=== PATIENT | female | born 1935 | race Caucasian/White ===

== ENCOUNTER 2020-07-02 13:31 | Inpatient (IN) | payer MEDICARE ==
[~2020-07-02] VITALS: Ht 165.1 cm; Wt 49.6 kg
[~2020-07-02 13:31] MED LIST: ACETAZOLAMIDE250 MG PO; ALDACTONE 25MG25 MG PO; ALPRAZOLAM0.5 MG PO; ANTACID LIQUID355 ML PO; ANUSOL HC SUPP1 SUPP PR; ASPIRIN CHEWABL81 MG PO; BIOTIN2500 MCG PO; BUMETANIDE1 MG PO; CARDIZEM CD180 MG PO; DIGOXIN125 MCG PO; DILTIAZEM 24HR180 M1 PO; DULERA 100 MCG8.8 GM INH; FEROSUL325 MG PO; FERROUS GLUCON324 M1 PO; FUROSEMIDE20 MG PO; HUMIRA40 MG/0.4 SQ; HYDROCHLOROTHIA25 MG PO; IMDUR ER TAB 3030 MG PO; LASIX20 MG PO; LASIX40 MG PO; LEVALBUTER0.31 MG/3 NEB; LEVAQUIN500 MG PO; LEVOTHYROXINE50 MCG PO; LIORESAL TAB 1010 MG PO; LOPRESSOR 25 MG25 MG PO; LORTAB 5-325 M1 EACH PO; METOPROLOL SUCC25 MG PO; METOPROLOL TART25 MG PO; MYCOSTATIN100000 UTS PO; NITROSTAT 0.40.4 MG SL; NORCO 5-325 TA1 EACH PO; OMNICEF 300 MG300 MG PO; PLAQUENIL 200200 MG PO; PLAQUENIL200 MG PO; POLYETHYLENE GL17 GM PO; PRAVACHOL40 MG PO; PREDNISONE 5 MG5 MG PO; PROBIOTIC1 EAC1 PO; PROTONIX40 MG PO; SENNA-TIME S T1 EACH PO; SYNTHROID25 MCG PO; THERAGRAN M TAB1 EA PO; TRIMETHOPRIM100 MG PO; VITAMIN D250000 UNIT PO; VOLTAREN100 GM TP; XARELTO10 MG PO; XARELTO15 MG PO
[2020-07-02 14:35] LABS: HEMOGLOBIN 10.3 gm/dl (12.3-15.3); RED BLOOD COUNT 3.38 M/UL (4.00-5.10); WHITE BLOOD COUNT 8.1 K/UL (4.5-11.0)
[2020-07-02] MEDS ORDERED: FERROUS SULFAT325 MG PO (15:50)
[2020-07-02] MEDS ORDERED: PROBIOTIC1 EAC1 PO (19:51)
[2020-07-02] MEDS ORDERED: PREDNISONE 5 MG5 MG PO (19:54)
[2020-07-02] MEDS ORDERED: LIORESAL TAB 1010 MG PO (19:55)
[2020-07-02] MEDS ORDERED: ALDACTONE 25MG25 MG PO (19:58)
[2020-07-02] MEDS ORDERED: FERROUS SULFAT325 M2 PO (19:59)
[2020-07-02] MEDS ORDERED: LASIX TAB 20 MG20 MG PO (20:02)
[2020-07-02] MEDS ORDERED: MIRALAX17 GM PO (20:03)
[2020-07-02] MEDS ORDERED: ANUSOL-HC25 MG PR (20:05)
[2020-07-02] MEDS ORDERED: PREPARATION H26 GM TP (20:07)
[2020-07-03 07:01] LABS: HEMOGLOBIN 10.7 gm/dl (12.3-15.3); RED BLOOD COUNT 3.59 M/UL (4.00-5.10); WHITE BLOOD COUNT 7.7 K/UL (4.5-11.0)
--- NOTE | 2020-07-03 14:28 | NUR ---
PILLOWS PLACED UNDER PATIENT AT THIS TIME DUE TO PATIENT STATING THAT HER LOWER LARY WAS HURTING. PATIENT TOLERATED WELL. FAMILY AT BEDSIDE WITH NO NEW NEEDS NOTED OR VERBALIZED.
--- NOTE | 2020-07-04 03:17 | NUR ---
NITRO SERIES ADMIN. PATIENT VOICES TO SON "ESTUARDO KOENIG RIGHT HERE IN THIS HOSPITAL." PATIENT VOICES PAIN IS 6/10 IN CHEST , AND AFTER FIRST ROUND OF NITRO THAT SHE HAS A HEADACHE AND PAIN IN LEFT ARM. PATIENT BEGINS VOMITING AND MD IS MADE AWARE OF CHANGES IN PATIENT STATUS.
[2020-07-04 03:36] LABS: HEMOGLOBIN 10.4 gm/dl (12.3-15.3); RED BLOOD COUNT 3.41 M/UL (4.00-5.10); WHITE BLOOD COUNT 7.6 K/UL (4.5-11.0)
[2020-07-05 07:08] LABS: HEMOGLOBIN 9.7 gm/dl (12.3-15.3); RED BLOOD COUNT 3.18 M/UL (4.00-5.10); WHITE BLOOD COUNT 7.9 K/UL (4.5-11.0)
[2020-07-06] MEDS ORDERED: IMDUR ER TAB 3030 MG PO (12:28)
[2020-07-06] MEDS ORDERED: METOCLOPRAMIDE H5 MG PO (12:28)
== END 2020-07-06 18:00 | disposition home or self-care (01) | DRG 291 ==
LOC: ER1 13:31 → CDU 16:37 → MED SURG 4 21:42
PROVIDERS: Emergency Medicine; Physician Assistant; Physician Assistant Medical; ADMIT Internal Medicine Infectious Disease
DX: I13.0 Hypertensive heart and chronic kidney disease with heart failure and stage 1 through stage 4 chronic kidney disease, or unspecified chronic kidney disease (principal); I50.33 Acute on chronic diastolic (congestive) heart failure; J96.21 Acute and chronic respiratory failure with hypoxia; N17.9 Acute kidney failure, unspecified; Z20.822 Contact with and (suspected) exposure to COVID-19; E87.1 Hypo-osmolality and hyponatremia; N18.30 Chronic kidney disease, stage 3 unspecified; R07.89 Other chest pain; E87.5 Hyperkalemia; R11.2 Nausea with vomiting, unspecified; I16.0 Hypertensive urgency; I25.10 Atherosclerotic heart disease of native coronary artery without angina pectoris; Z66 Do not resuscitate; J44.9 Chronic obstructive pulmonary disease, unspecified; I27.20 Pulmonary hypertension, unspecified; I48.0 Paroxysmal atrial fibrillation; E78.5 Hyperlipidemia, unspecified; D50.9 Iron deficiency anemia, unspecified; I49.5 Sick sinus syndrome; E03.9 Hypothyroidism, unspecified; I73.9 Peripheral vascular disease, unspecified; Z79.01 Long term (current) use of anticoagulants; Z79.890 Hormone replacement therapy; Z79.899 Other long term (current) drug therapy; Z84.89 Family history of other specified conditions; Z95.5 Presence of coronary angioplasty implant and graft; Z95.0 Presence of cardiac pacemaker
CPT/HCPCS: 0240U; 36415; 51702; 71045; 80048; 80053; 80162; 82550; 82553; 82728; 83540; 83550; 83735; 83880; 84443; 84484; 85025; 85027; 93005; 96365; 96366; 96374; 96375; 96376; 97162; 97530; 97530-GP-CQ; 99285; G0378; J0360; J1940; J2405; U0002

== ENCOUNTER → 2020-10-08 | Outpatient (CLI) | payer MEDICARE ==
[~2020-10-08] MED LIST changes: +ANUSOL-HC25 MG PR; +FERROUS SULFAT325 M2 PO; +FERROUS SULFAT325 MG PO; +HYDROCODONE-AC1 EACH PO; +LASIX TAB 20 MG20 MG PO; +METOCLOPRAMIDE H5 MG PO; +MIRALAX17 GM PO; +PREPARATION H26 GM TP
== END ==
LOC: KOH-I 14:58
DX: M54.6 Pain in thoracic spine (principal); M85.88 Other specified disorders of bone density and structure, other site; M47.814 Spondylosis without myelopathy or radiculopathy, thoracic region; M48.54XA Collapsed vertebra, not elsewhere classified, thoracic region, initial encounter for fracture
CPT/HCPCS: 71046; 72070

== ENCOUNTER 2020-11-05 16:23 | Emergency (ER) | payer MEDICARE ==
[~2020-11-05 16:23] MED LIST changes: -HYDROCODONE-AC1 EACH PO
[2020-11-05 17:49] LABS: RED BLOOD COUNT 3.71 M/UL (4.00-5.10); WHITE BLOOD COUNT 7.5 K/UL (4.5-11.0)
[2020-11-06] MEDS ORDERED: HYDROCODONE-AC1 EACH PO (03:43)
== END 2020-11-06 04:05 | disposition home or self-care (01) ==
LOC: ER1 16:23
PROVIDERS: Physician Assistant
DX: S22.079A Unspecified fracture of T9-T10 vertebra, initial encounter for closed fracture (principal); S22.069A Unspecified fracture of T7-T8 vertebra, initial encounter for closed fracture; S22.089A Unspecified fracture of T11-T12 vertebra, initial encounter for closed fracture; J43.9 Emphysema, unspecified; I48.91 Unspecified atrial fibrillation; I10 Essential (primary) hypertension; X58.XXXA Exposure to other specified factors, initial encounter
CPT/HCPCS: 71045; 80053; 82550; 82553; 83874; 83880; 84484; 85025; 85379; 85610; 85730; 93005; 99285; Q9967

== ENCOUNTER → 2020-12-04 | Outpatient (CLI) | payer MEDICARE ==
[~2020-12-04] MED LIST changes: +ACETAMINOPHEN500 MG PO; +ASPERCREME LID1 EACH TOP; +BUDESONIDE0.5 MG/2 M NEB; +GABAPENTIN100 MG PO; +HYDROCODON-ACE1 EAC6 PO; +HYDROCODONE-AC1 EACH PO; +LEVOFLOXACIN500 MG PO
[2020-12-04 12:57] LABS: HEMOGLOBIN 10.6 gm/dl (12.3-15.3); RED BLOOD COUNT 3.35 M/UL (4.00-5.10); WHITE BLOOD COUNT 10.2 K/UL (4.5-11.0)
== END ==
LOC: LAB 11:32
PROVIDERS: Emergency Medicine
DX: I10 Essential (primary) hypertension (principal); E03.8 Other specified hypothyroidism; R53.83 Other fatigue; R09.02 Hypoxemia; R06.02 Shortness of breath; J43.8 Other emphysema; R07.89 Other chest pain; R00.2 Palpitations; J84.9 Interstitial pulmonary disease, unspecified; Z79.899 Other long term (current) drug therapy
CPT/HCPCS: 36415; 71046; 80053; 85025

== ENCOUNTER 2021-01-13 08:52 | Inpatient (IN) | payer MEDICARE ==
[~2021-01-13] VITALS: Ht 170.2 cm; Wt 50.4 kg
[~2021-01-13 08:52] MED LIST changes: -ACETAMINOPHEN500 MG PO; -ASPERCREME LID1 EACH TOP; -BUDESONIDE0.5 MG/2 M NEB; -GABAPENTIN100 MG PO; -HYDROCODON-ACE1 EAC6 PO; -LEVOFLOXACIN500 MG PO; -PREPARATION H26 GM TP; -XARELTO15 MG PO
[2021-01-13 10:11] LABS: HEMOGLOBIN 9.9 gm/dl (12.3-15.3); RED BLOOD COUNT 3.23 M/UL (4.00-5.10); WHITE BLOOD COUNT 11.4 K/UL (4.5-11.0)
[2021-01-13 11:06] LABS: BUN/CREATININE RATIO 32 (0-10)
[2021-01-13] MEDS ORDERED: XARELTO15 MG PO (14:21)
[2021-01-13] MEDS ORDERED: HYDROCODON-ACE1 EAC6 PO ×2 (15:44→15:45)
[2021-01-13] MEDS ORDERED: ASPERCREME LID1 EACH TOP (15:51)
[2021-01-13] MEDS ORDERED: GABAPENTIN100 MG PO (15:51)
[2021-01-13] MEDS ORDERED: PREPARATION H26 GM TP (20:07)
[2021-01-14 03:11] LABS: HEMOGLOBIN 8.6 gm/dl (12.3-15.3)
[2021-01-14 03:36] LABS: RED BLOOD COUNT 2.81 M/UL (4.00-5.10); WHITE BLOOD COUNT 3.4 K/UL (4.5-11.0)
[2021-01-14 03:52] LABS: BUN/CREATININE RATIO 29 (0-10)
[2021-01-15 05:38] LABS: HEMOGLOBIN 8.4 gm/dl (12.3-15.3); RED BLOOD COUNT 2.86 M/UL (4.00-5.10); WHITE BLOOD COUNT 9.7 K/UL (4.5-11.0)
[2021-01-16 02:49] LABS: RED BLOOD COUNT 2.94 M/UL (4.00-5.10); WHITE BLOOD COUNT 7.4 K/UL (4.5-11.0)
[2021-01-17 04:38] LABS: HEMOGLOBIN 8.9 gm/dl (12.3-15.3); RED BLOOD COUNT 2.93 M/UL (4.00-5.10); WHITE BLOOD COUNT 7.4 K/UL (4.5-11.0)
[2021-01-17] MEDS ORDERED: ACETAMINOPHEN500 MG PO (13:00)
[2021-01-17] MEDS ORDERED: LEVOFLOXACIN500 MG PO (13:02)
[2021-01-17] MEDS ORDERED: BUDESONIDE0.5 MG/2 M NEB (13:02)
[2021-01-18 07:16] LABS: HEMOGLOBIN 8.9 gm/dl (12.3-15.3); RED BLOOD COUNT 2.93 M/UL (4.00-5.10)
--- NOTE | 2021-01-18 11:28 | NUR ---
report called to [facility].
== END 2021-01-18 13:30 | DRG 193 ==
LOC: ER1 08:52 → MED SURG 4 12:19 → CDU 12:19 → PROG CARE 23:30 → MED SURG 4 01-14 17:36
PROVIDERS: Emergency Medicine; Internal Medicine; Physician Assistant; ADMIT Internal Medicine
DX: J18.9 Pneumonia, unspecified organism (principal); J96.21 Acute and chronic respiratory failure with hypoxia; J44.0 Chronic obstructive pulmonary disease with (acute) lower respiratory infection; N39.0 Urinary tract infection, site not specified; J44.1 Chronic obstructive pulmonary disease with (acute) exacerbation; I48.20 Chronic atrial fibrillation, unspecified; I50.32 Chronic diastolic (congestive) heart failure; I13.0 Hypertensive heart and chronic kidney disease with heart failure and stage 1 through stage 4 chronic kidney disease, or unspecified chronic kidney disease; E87.2 Acidosis; E22.2 Syndrome of inappropriate secretion of antidiuretic hormone; K59.00 Constipation, unspecified; B96.20 Unspecified Escherichia coli [E. coli] as the cause of diseases classified elsewhere; T38.0X5A Adverse effect of glucocorticoids and synthetic analogues, initial encounter; I27.20 Pulmonary hypertension, unspecified; E03.9 Hypothyroidism, unspecified; I73.9 Peripheral vascular disease, unspecified; E78.5 Hyperlipidemia, unspecified; Z66 Do not resuscitate; I49.5 Sick sinus syndrome; I25.10 Atherosclerotic heart disease of native coronary artery without angina pectoris; Z79.52 Long term (current) use of systemic steroids; Z99.81 Dependence on supplemental oxygen; Z87.891 Personal history of nicotine dependence; Z88.5 Allergy status to narcotic agent; Z88.8 Allergy status to other drugs, medicaments and biological substances; Z79.890 Hormone replacement therapy; Z79.01 Long term (current) use of anticoagulants; Z90.710 Acquired absence of both cervix and uterus; Z95.1 Presence of aortocoronary bypass graft; Z99.2 Dependence on renal dialysis; Z90.89 Acquired absence of other organs; Z90.49 Acquired absence of other specified parts of digestive tract; Z82.49 Family history of ischemic heart disease and other diseases of the circulatory system
CPT/HCPCS: 36415; 36600; 51702; 71045; 71250; 80048; 80053; 81001; 82436; 82550; 82553; 82570; 82803; 83605; 83690; 83735; 83874; 83880; 84100; 84133; 84156; 84300; 84484; 85025; 85027; 86140; 87040; 87077; 87086; 87186; 92610; 93005; 94640; 94660; 94664; 94760; 96365; 96375; 97110; 97161; 97166; 97530-GP-CQ; 99285; J0456; J0696; J2930; J7030; U0002

== ENCOUNTER 2021-04-05 04:05 | Emergency (ER) | payer MEDICARE ==
[~2021-04-05 04:05] MED LIST changes: +ACETAMINOPHEN500 MG PO; +ASPERCREME LID1 EACH TOP; +BUDESONIDE0.5 MG/2 M NEB; +GABAPENTIN100 MG PO; +HYDROCODON-ACE1 EAC6 PO; +LEVOFLOXACIN500 MG PO; +PREPARATION H26 GM TP; +XARELTO15 MG PO
[2021-04-05 05:35] LABS: HEMOGLOBIN 9.8 gm/dl (12.3-15.3); RED BLOOD COUNT 3.13 M/UL (4.00-5.10); WHITE BLOOD COUNT 10.8 K/UL (4.5-11.0)
[2021-04-05 06:22] LABS: BUN/CREATININE RATIO 19 (0-10)
[2021-04-05] MEDS ORDERED: CEPHALEXIN500 M1 PO (10:24)
== END 2021-04-05 11:17 | disposition home or self-care (01) ==
LOC: ER1 04:05
PROVIDERS: Family Medicine
DX: R07.9 Chest pain, unspecified (principal); N39.0 Urinary tract infection, site not specified; I25.2 Old myocardial infarction; I48.91 Unspecified atrial fibrillation
CPT/HCPCS: 71045; 80053; 81001; 82550; 82553; 83874; 84484; 85025; 87077; 87086; 87186; 93005; 99285

== ENCOUNTER 2021-05-22 08:33 | Observation (INO) | payer MEDICARE ==
[~2021-05-22] VITALS: Ht 162.6 cm; Wt 45.4 kg
[~2021-05-22 08:33] MED LIST changes: +CEPHALEXIN500 M1 PO
[2021-05-22 09:21] LABS: HEMOGLOBIN 10.3 gm/dl (12.3-15.3); RED BLOOD COUNT 3.36 M/UL (4.00-5.10); WHITE BLOOD COUNT 6.8 K/UL (4.5-11.0)
[2021-05-22 10:04] LABS: BUN/CREATININE RATIO 19 (0-10)
[2021-05-22] MEDS ORDERED: LIDOCAINE PAIN1 EACH TP (15:44)
[2021-05-22] MEDS ORDERED: ALPHAGAN P OP SO5 ML EYEBOTH (15:45)
[2021-05-22] MEDS ORDERED: MULTIVITAMIN1 EACH PO (15:45)
[2021-05-22] MEDS ORDERED: SENNA PLUS 8.61 EACH PO (15:46)
[2021-05-22] MEDS ORDERED: LATANOPROST 0.7.5 ML OU (15:46)
[2021-05-22] MEDS ORDERED: XIIDRA OU (15:47)
[2021-05-22] MEDS ORDERED: HYDROXYCHLOROQ200 MG PO (15:48)
[2021-05-22] MEDS ORDERED: RHOPRESSA2.5 ML OU (15:49)
[2021-05-22] MEDS ORDERED: HYDROCODON-ACE1 EAC6 PO (15:50)
[2021-05-22] MEDS ORDERED: DIPHENHYDRAMI12.5 MG PO (15:51)
[2021-05-22] MEDS ORDERED: SYSTANE GEL10 GM TOP (15:51)
[2021-05-22] MEDS ORDERED: HYDROCORTISONE25 MG PR (15:52)
[2021-05-22] MEDS ORDERED: CORTISONE28 G2 TOP (15:52)
[2021-05-23 06:53] LABS: HEMOGLOBIN 9.9 gm/dl (12.3-15.3); RED BLOOD COUNT 3.29 M/UL (4.00-5.10)
[2021-05-23] MEDS ORDERED: LEVOFLOXACIN500 MG PO (08:59)
== END 2021-05-23 16:08 ==
LOC: ER1 08:33 → 3 EAST 14:10 → CDU 14:10 → 3 EAST 19:35
PROVIDERS: Nurse Practitioner; Physician Assistant Medical; ADMIT Internal Medicine
DX: N30.00 Acute cystitis without hematuria (principal); B96.20 Unspecified Escherichia coli [E. coli] as the cause of diseases classified elsewhere; N17.9 Acute kidney failure, unspecified; I13.0 Hypertensive heart and chronic kidney disease with heart failure and stage 1 through stage 4 chronic kidney disease, or unspecified chronic kidney disease; N18.30 Chronic kidney disease, stage 3 unspecified; I50.32 Chronic diastolic (congestive) heart failure; J96.12 Chronic respiratory failure with hypercapnia; J96.11 Chronic respiratory failure with hypoxia; M62.830 Muscle spasm of back; I25.10 Atherosclerotic heart disease of native coronary artery without angina pectoris; I73.9 Peripheral vascular disease, unspecified; I48.0 Paroxysmal atrial fibrillation; I48.92 Unspecified atrial flutter; I49.5 Sick sinus syndrome; J44.9 Chronic obstructive pulmonary disease, unspecified; D50.9 Iron deficiency anemia, unspecified; E03.9 Hypothyroidism, unspecified; E44.0 Moderate protein-calorie malnutrition; Z68.1 Body mass index [BMI] 19.9 or less, adult; Z20.822 Contact with and (suspected) exposure to COVID-19; Z95.5 Presence of coronary angioplasty implant and graft; Z90.49 Acquired absence of other specified parts of digestive tract; Z90.710 Acquired absence of both cervix and uterus; Z88.5 Allergy status to narcotic agent; Z88.8 Allergy status to other drugs, medicaments and biological substances; Z79.01 Long term (current) use of anticoagulants; Z79.51 Long term (current) use of inhaled steroids; Z79.899 Other long term (current) drug therapy; Z66 Do not resuscitate
CPT/HCPCS: 36600; 71045; 80048; 81001; 82550; 82553; 82803; 83735; 83874; 83880; 84484; 85025; 85027; 85379; 85610; 85652; 85730; 87040; 87077; 87086; 87186; 93005; 96374; 96375; 99285; G0378; J0696; J2930; J7030; Q9967; U0002

== ENCOUNTER 2021-05-31 05:46 | Inpatient (IN) | payer MEDICARE ==
[~2021-05-31] VITALS: Ht 162.6 cm; Wt 44.5 kg
[~2021-05-31 05:46] MED LIST changes: +ALPHAGAN P OP SO5 ML EYEBOTH; +CORTISONE28 G2 TOP; +DIPHENHYDRAMI12.5 MG PO; +HYDROCORTISONE25 MG PR; +HYDROXYCHLOROQ200 MG PO; +LATANOPROST 0.7.5 ML OU; +LIDOCAINE PAIN1 EACH TP; +MULTIVITAMIN1 EACH PO; +RHOPRESSA2.5 ML OU; +SENNA PLUS 8.61 EACH PO; +SYSTANE GEL10 GM TOP; +XIIDRA OU
[2021-05-31 06:54] LABS: HEMOGLOBIN 12.2 gm/dl (12.3-15.3); RED BLOOD COUNT 4.07 M/UL (4.00-5.10); WHITE BLOOD COUNT 13.3 K/UL (4.5-11.0)
[2021-05-31 07:14] LABS: BUN/CREATININE RATIO 25 (0-10)
[2021-06-01 06:47] LABS: HEMOGLOBIN 11.4 gm/dl (12.3-15.3); RED BLOOD COUNT 3.75 M/UL (4.00-5.10); WHITE BLOOD COUNT 12.1 K/UL (4.5-11.0)
[2021-06-02 04:36] LABS: HEMOGLOBIN 9.5 gm/dl (12.3-15.3); WHITE BLOOD COUNT 10.9 K/UL (4.5-11.0)
[2021-06-02 04:38] LABS: RED BLOOD COUNT 3.13 M/UL (4.00-5.10)
[2021-06-04 07:12] LABS: HEMOGLOBIN 8.8 gm/dl (12.3-15.3); RED BLOOD COUNT 2.89 M/UL (4.00-5.10); WHITE BLOOD COUNT 9.1 K/UL (4.5-11.0)
[2021-06-05 05:47] LABS: HEMOGLOBIN 10.3 gm/dl (12.3-15.3); RED BLOOD COUNT 3.5 M/UL (4.00-5.10); WHITE BLOOD COUNT 10.5 K/UL (4.5-11.0)
[2021-06-06 04:43] LABS: HEMOGLOBIN 8.5 gm/dl (12.3-15.3); WHITE BLOOD COUNT 10.9 K/UL (4.5-11.0)
[2021-06-06 04:46] LABS: RED BLOOD COUNT 2.86 M/UL (4.00-5.10)
[2021-06-07 07:06] LABS: WHITE BLOOD COUNT 11.4 K/UL (4.5-11.0)
[2021-06-07 07:07] LABS: RED BLOOD COUNT 3.3 M/UL (4.00-5.10)
[2021-06-08 06:45] LABS: HEMOGLOBIN 10.3 gm/dl (12.3-15.3); RED BLOOD COUNT 3.41 M/UL (4.00-5.10); WHITE BLOOD COUNT 9.5 K/UL (4.5-11.0)
[2021-06-09 07:53] LABS: HEMOGLOBIN 10.1 gm/dl (12.3-15.3); RED BLOOD COUNT 3.45 M/UL (4.00-5.10); WHITE BLOOD COUNT 8.1 K/UL (4.5-11.0)
[2021-06-10 06:26] LABS: WHITE BLOOD COUNT 7.9 K/UL (4.5-11.0)
[2021-06-10 06:37] LABS: RED BLOOD COUNT 3.02 M/UL (4.00-5.10)
[2021-06-10] MEDS ORDERED: INVANZ 1 GM VIAL1 GM IM (11:44)
[2021-06-10] MEDS ORDERED: HYDRALAZINE HCL25 MG PO (11:44)
[2021-06-10] MEDS ORDERED: VALACYCLOVIR500 MG PO (11:44)
[2021-06-10] MEDS ORDERED: COLACE100 MG PO (12:24)
[2021-06-10] MEDS ORDERED: MIRALAX17 GM PO (12:24)
--- NOTE | 2021-06-10 14:01 | NUR ---
report given to [place] admitting nurse
== END 2021-06-10 17:41 | DRG 193 ==
LOC: ER1 05:46 → CDU 08:59 → M/S 08:59
PROVIDERS: Internal Medicine; Nurse Practitioner; Physician Assistant; ADMIT Internal Medicine
PROC: 5A09357 Assistance with Respiratory Ventilation, Less than 24 Consecutive Hours, Continuous Positive Airway Pressure (ICD-10-PCS; principal; 2021-05-31)
DX: J18.9 Pneumonia, unspecified organism (principal); J96.21 Acute and chronic respiratory failure with hypoxia; I48.20 Chronic atrial fibrillation, unspecified; Z66 Do not resuscitate; Z20.822 Contact with and (suspected) exposure to COVID-19; J44.0 Chronic obstructive pulmonary disease with (acute) lower respiratory infection; I13.0 Hypertensive heart and chronic kidney disease with heart failure and stage 1 through stage 4 chronic kidney disease, or unspecified chronic kidney disease; I50.32 Chronic diastolic (congestive) heart failure; E44.0 Moderate protein-calorie malnutrition; Z68.1 Body mass index [BMI] 19.9 or less, adult; I08.1 Rheumatic disorders of both mitral and tricuspid valves; I25.10 Atherosclerotic heart disease of native coronary artery without angina pectoris; D50.9 Iron deficiency anemia, unspecified; I73.9 Peripheral vascular disease, unspecified; I49.5 Sick sinus syndrome; I27.20 Pulmonary hypertension, unspecified; E03.9 Hypothyroidism, unspecified; B02.9 Zoster without complications; K58.9 Irritable bowel syndrome, unspecified; M06.9 Rheumatoid arthritis, unspecified; I48.0 Paroxysmal atrial fibrillation; R53.81 Other malaise; N18.30 Chronic kidney disease, stage 3 unspecified; K59.00 Constipation, unspecified; D63.1 Anemia in chronic kidney disease; Z79.01 Long term (current) use of anticoagulants; Z95.5 Presence of coronary angioplasty implant and graft; Z87.440 Personal history of urinary (tract) infections; Z90.710 Acquired absence of both cervix and uterus; Z90.49 Acquired absence of other specified parts of digestive tract; Z88.6 Allergy status to analgesic agent; Z88.1 Allergy status to other antibiotic agents; Z88.8 Allergy status to other drugs, medicaments and biological substances; Z87.891 Personal history of nicotine dependence; Z80.9 Family history of malignant neoplasm, unspecified; Z82.69 Family history of other diseases of the musculoskeletal system and connective tissue; Z98.51 Tubal ligation status; Z98.42 Cataract extraction status, left eye; Z98.41 Cataract extraction status, right eye; Z82.3 Family history of stroke; Z83.3 Family history of diabetes mellitus
CPT/HCPCS: 36415; 36600; 71045; 71046; 80048; 80053; 80202; 81001; 82550; 82553; 82803; 83874; 84484; 85025; 85027; 87081; 93005; 94760; 97110-GP-CQ; 97116; 97161; 97530-GP-CQ; 99285; G0378; J0360; J0692; J1120; J1885; J2185; J3370; J7030; J7050; J7070; U0002